=== PATIENT | female | born 2000 | race Caucasian/White ===

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

== ENCOUNTER 2022-02-25 15:11 | Outpatient (REF) | payer OTHER, MEDICAID, SELFPAY ==
[2022-02-25 16:30] LABS: Amphetamine Screen Urine Not Detected (Not Detect); Barbiturates, Urine Not Detected (Not Detect); Benzodiazepines Screen Urine Not Detected (Not Detect); Cannabinoid Screen Urine POSITIVE (Not Detect); Cocaine Screen Urine Not Detected (Not Detect); Fentanyl, urine Not Detected (Not Detect); Opiate Screen Urine Not Detected (Not Detect); Phencyclidine Screen Urine Not Detected (Not Detect)
== END 2022-02-25 15:12 | disposition home or self-care (01) ==
LOC: HO.LAB 15:11
PROVIDERS: PCP Specialist; Visit Provider Nurse Practitioner Psychiatric/Mental Health
DX: F10.10 Alcohol abuse, uncomplicated (principal); F12.90 Cannabis use, unspecified, uncomplicated
CPT/HCPCS: 80307

== ENCOUNTER 2022-03-19 10:15 | Outpatient (RCR) | payer OTHER, SELFPAY ==
[2022-02-20 12:38] VITALS: BMI 23.2
--- NOTE | 2022-02-20 14:54 | PC.NURSE ---
Case opened in treatment team
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
--- NOTE | 2022-02-21 09:39 | PC.NURSE ---
Patient reports she has a hair specialist appointment on 02/25/22. She reports dx of celiac disease and IBS.
--- NOTE | 2022-02-25 09:34 | PC.NURSE ---
Patient stated she has not been sleeping well and c/o anxiety. She picked up the new medication Seroquel but has not started the medication. Plans on starting the medication tonight. Patient is aware that the mediation could help with sleep and anxiety. Reports medical issues and anxiety issues causing problems with her appetite. Stated she is drinking ensure and is drinking fluids as her and her boyfriend went to the grocery store yesterday. She has an appointment with her waste duster today. She also called her [employer] this morning to make an appointment as she has Celiac's disease and IBS and has been having GI issues as a result. She is awaiting a call back to make an appointment. Asked patient if she was having SI. Patient reports passive SI thinking, I don't want to do this anymore . She denied plan or intent to kill herself. Reports she has much support from her mother, BF, brother, therapist, and friends she could reach out to if needed. Stated she could also call crisis for an evaluation if needed however does not feel she needs to at this time.
--- NOTE | 2022-02-26 14:24 | HO.PHPPROGNO ---
Subjective Subjective Date of Service: 02/26/22 Reason For Visit: PTSD,depression,anxiety Guardianship: No Medical Problems Affecting Mental Status: No Interim History: Describes mood as ?I am okay ?. Did not start Seroquel until last night, reports she had been having some difficulty with nausea and sleep over the past week. Reports carroting machine offbearer has started her with ondansetron, with positive effect. Denies SI, no safety concern. Reports anxiety has increased, she trying not to watch national news as it is making her more anxious. Medication Compliance: Intermittent Side effects from medications: No Attending Groups: Yes Review of Systems Acute medical concerns: Yes Working with carroting machine offbearer due to ongoing nausea. Medical Review of Systems: changed Review of Systems Review of Systems Yes all other systems are reviewed and are negative Gastrointestinal: Reports nausea Mental Status Exam Mental Status Exam Narrative: NAD. Appropriately dressed. Anxious mood an affect. Fully cooperative during encounter. Patient Appearance: Well Grooomed and Appropriate Patient Orientation: Person, Place, Time and Situation Level of Consciousness: Awake, Appropriate and Alert Patient Behavior: Appropriate, Cooperative and Good Eye Contact Mood Description: Anxious Affect Description: Depressed and Anxious Patient Cognition Impaired: No Ability to Follow Directions: Good Speech Pattern: Clear, Appropriate and Coherent Memory Description: Intact Hallucinations: None Delusions: Not Present Thought Process: Intact Thought Content: positive for Intact Depressive Symptoms: Increased Anxiety, Increased Irritability, Difficulty Sleeping, Changes in Appetite (decreased), Loss of Int. in Activity, Isolating-Friends/Family, Feelings of Guilt, Unhappiness and Unexplained Stomach Pain Judgement: Fair Diagnostics Vital Signs (24Hr): BMI result Body Mass Index 23.2 Assessment & Plan Assessment & Plan (1) Generalized anxiety disorder: Status: Acute Code(s): F41.1 - Generalized anxiety disorder Assessment and Plan: Reports overall feeling more anxious, states that she feels her anxiety is worsening. Feels depression is ?about the same ?. Denies SI, states that she feels safe at this time. Did not start the Seroquel as prescribed, started it last night. Reports that it appear to help her sleep well. Discussed medications, discussed possibility of starting BuSpar, discuss indications, risks, benefits, and alternatives. She is willing to trial this medication in addition to the Seroquel. (2) Chronic post-traumatic stress disorder (PTSD): Status: Acute Code(s): F43.12 - Post-traumatic stress disorder, chronic (3) Major depressive disorder, recurrent severe without psychotic features: Status: Acute Code(s): F33.2 - Major depressive disorder, recurrent severe without psychotic features (4) Alcohol consumption binge drinking: Status: Acute Code(s): F10.10 - Alcohol abuse, uncomplicated Assessment and Plan: Reports has maintain abstinence at this time. (5) Marijuana use, continuous: Status: Acute Code(s): F12.90 - Cannabis use, unspecified, uncomplicated Assessment and Plan: Reports has maintained abstinence. Plan 1. Add BuSpar 10 mg t.i.d. scheduled. 2. Continue with other medications as prescribed, including seroquel (started last night). 3. Continue with current [facility] plan of care. 4. Follow-up as per protocol. Patient educated on: diagnosis, medication risk/benefits, substance abuse and therapeutic strategies Informed Consent: understands Reason for contiued partial hosp. stay Substantial Risk for: harm to self, inability to function, rapid decompensation and med/psych decompensation Certification I certify that partial hospital treatment is medically necessary due to the symptoms and problems resulting from the patient's mental illness and the failure to treat the patient at the partial hospital level of care would likely result in the patient requiring inpatient psychiatric care which could not be prevented at a less intensive level of care. I spent minutes with the patient and/or on the patient floor today, greater than?50% of which was spent counseling/coordinating care. Discharge Plan Discharge Attending provider: Hardeep Zamarripa Medications: New quetiapine 25 mg tablet 25 mg PO BEDTIME 14 Days Qty: 14 0RF buspirone 10 mg tablet 10 mg PO TID 7 Days Qty: 21 0RF No Action Low-Ogestrel (28) 0.3-30 mg-mcg Tablet 1 tab PO DAILY 0RF cetirizine 10 mg Tablet 10 mg PO DAILY 0RF fluconazole 150 mg Tablet 150 mg PO QWEEK 0RF Rx Instructions: Take on ' spironolactone 100 mg Tablet 100 mg PO DAILY 0RF doxycycline monohydrate 100 mg Tablet 100 mg PO BID 0RF fluticasone propionate 50 mcg/actuation [place],Suspension 1 spray INTRANASAL DAILY 0RF Rx Instructions: administer into each nostril Telehealth Telehealth Location of provider rendering services: practice address Location of patient: address on file Patient Identification confirmed using: Name, : Yes Telehealth method: video Patient verbally consented to treatment: Yes Patient verbally consented to billing insurance company: Yes Patient informed of any privacy concerns related to visit: Yes Minutes spent on Phone/Video with Pt.: 15
--- NOTE | 2022-02-28 14:22 | PM.EVENT ---
Event Note Date of Service: 02/28/22 Event Note: Prescription sent to pharmacy for nicorette gum.
--- NOTE | 2022-03-06 14:43 | HO.PHPPROGNO ---
Subjective Subjective Date of Service: 03/06/22 Reason For Visit: PTSD,depression,anxiety Guardianship: No Medical Problems Affecting Mental Status: No Interim History: Reports increased anxiety regarding therapy appointment scheduled this afternoon with mother. States, I just have a lot going on today ?. Since starting quetiapine, overall anxiety has begun to lessen. Did not start BuSpar, believes it may have been thrown out accidentally in home. Request additional med for anxiety. Denies SI, no safety concern. Medication Compliance: Intermittent Side effects from medications: No Attending Groups: Yes Review of Systems Acute medical concerns: No Medical Review of Systems: unchanged Review of Systems Review of Systems Yes all other systems are reviewed and are negative Constitutional: Reports no additional constitutional complaints Mental Status Exam Mental Status Exam Narrative: NAD. Appropriately dressed. Fully cooperative during encounter. Patient Appearance: Well Grooomed and Appropriate Patient Orientation: Person, Place, Time and Situation Level of Consciousness: Awake, Appropriate and Alert Patient Behavior: Appropriate, Cooperative and Good Eye Contact Mood Description: Anxious Affect Description: Depressed and Anxious Patient Cognition Impaired: No Ability to Follow Directions: Good Speech Pattern: Clear, Appropriate and Coherent Memory Description: Intact Hallucinations: None Delusions: Not Present Thought Process: Intact Thought Content: positive for Intact Depressive Symptoms: Increased Anxiety, Increased Irritability, Loss of Int. in Activity, Feelings of Guilt and Unhappiness Judgement: Fair Diagnostics Vital Signs (24Hr): BMI result Body Mass Index 23.2 Assessment & Plan Assessment & Plan (1) Major depressive disorder, recurrent severe without psychotic features: Status: Acute Code(s): F33.2 - Major depressive disorder, recurrent severe without psychotic features Assessment and Plan: Reports that overall symptoms of depression have appear to lessen. Reports that at this time she is more concerned with her level of anxiety, which has appeared to continue. Denies severe mood instability at this time, no angry outbursts, no crying. Denies SI, feels safe. States Seroquel is helping at night, willing to have dose increase at this time. (2) Chronic post-traumatic stress disorder (PTSD): Status: Acute Code(s): F43.12 - Post-traumatic stress disorder, chronic Assessment and Plan: Continues with anxiety/PTSD symptoms. Reports did not start BuSpar, as it was thrown out accidentally when mistaken as trash in household. Requests another medication in addition, as BuSpar can take several weeks to be effective. Discussed medication options, risks and benefits, alternatives. (3) Marijuana use, continuous: Status: Acute Code(s): F12.90 - Cannabis use, unspecified, uncomplicated Assessment and Plan: Patient is currently attending COD groups while in [facility]. (4) Alcohol consumption binge drinking: Status: Acute Code(s): F10.10 - Alcohol abuse, uncomplicated Plan Patient reports increased anxiety, has not started meds yet. Reports somewhat decreased symptoms of depression, finding Seroquel useful. Medication changes as follows. 1. Increase Seroquel to 50 mg at bedtime. 2. New script written for BuSpar 10 mg t.i.d.. 3. Start Vistaril 25 mg b.i.d. p.r.n. for anxiety. 4. Continue with current [facility] plan of care. 5. Follow-up as per protocol. Patient educated on: diagnosis, medication risk/benefits and therapeutic strategies Informed Consent: understands Reason for contiued partial hosp. stay Substantial Risk for: harm to self, inability to function, rapid decompensation and med/psych decompensation Certification I certify that partial hospital treatment is medically necessary due to the symptoms and problems resulting from the patient's mental illness and the failure to treat the patient at the partial hospital level of care would likely result in the patient requiring inpatient psychiatric care which could not be prevented at a less intensive level of care. I spent minutes with the patient and/or on the patient floor today, greater than?50% of which was spent counseling/coordinating care. Discharge Plan Discharge Attending provider: Hardeep Zamarripa Medications: New nicotine (polacrilex) [Nicorette] 2 mg gum 2 mg buccal Q2H PRN (Reason: nicotine cravings) Qty: 40 0RF hydroxyzine HCl 25 mg tablet 25 mg PO BID PRN (Reason: anxiety) Qty: 14 0RF quetiapine [Seroquel] 50 mg tablet 50 mg PO BEDTIME 14 Days Qty: 14 0RF buspirone 10 mg tablet 10 mg PO TID 14 Days Qty: 42 0RF No Action Low-Ogestrel (28) 0.3-30 mg-mcg Tablet 1 tab PO DAILY 0RF cetirizine 10 mg Tablet 10 mg PO DAILY 0RF fluconazole 150 mg Tablet 150 mg PO QWEEK 0RF Rx Instructions: Take on ' spironolactone 100 mg Tablet 100 mg PO DAILY 0RF doxycycline monohydrate 100 mg Tablet 100 mg PO BID 0RF fluticasone propionate 50 mcg/actuation [place],Suspension 1 spray INTRANASAL DAILY 0RF Rx Instructions: administer into each nostril Telehealth Telehealth Location of provider rendering services: practice address Location of patient: address on file Patient Identification confirmed using: Name, : Yes Telehealth method: video Patient verbally consented to treatment: Yes Patient verbally consented to billing insurance company: Yes Patient informed of any privacy concerns related to visit: Yes Minutes spent on Phone/Video with Pt.: 20
--- NOTE | 2022-03-10 10:17 | HO.PHPPROGNO ---
Subjective Subjective Date of Service: 03/10/22 Reason For Visit: PTSD,depression,anxiety Guardianship: No Medical Problems Affecting Mental Status: No Interim History: Reports ?I am okay, just tired. Lots of stuff with my family ?. No SI reported, no safety concern. Some improvement with anxiety, continues with dysphoric mood. Only taking BuSpar b.i.d.rather than t.i.d.. Tolerating increased dose of quetiapine 50 mg well. Medication Compliance: Intermittent Side effects from medications: Yes (N&V after taking on empty stomach, since resolved) Attending Groups: Yes Review of Systems Acute medical concerns: No Medical Review of Systems: unchanged Review of Systems Review of Systems Yes all other systems are reviewed and are negative Constitutional: Reports no additional constitutional complaints Mental Status Exam Mental Status Exam Narrative: NAD. Patient Appearance: Well Grooomed and Appropriate Patient Orientation: Person, Place, Time and Situation Level of Consciousness: Awake, Appropriate and Alert Patient Behavior: Appropriate, Cooperative and Good Eye Contact Mood Description: Depressed ( I'm good, just tired. Lots of stuff with my family . ) and Anxious Affect Description: Depressed and Anxious Patient Cognition Impaired: No Ability to Follow Directions: Good Speech Pattern: Clear, Appropriate and Coherent Memory Description: Intact Hallucinations: None Delusions: Not Present Thought Process: Intact Thought Content: positive for Intact Depressive Symptoms: Increased Anxiety, Loss of Int. in Activity, Feelings of Guilt and Unhappiness Judgement: Fair Diagnostics Vital Signs (24Hr): BMI result Body Mass Index 23.2 Assessment & Plan Assessment & Plan (1) Major depressive disorder, recurrent severe without psychotic features: Status: Acute Code(s): F33.2 - Major depressive disorder, recurrent severe without psychotic features Assessment and Plan: Reports overall dysphoric mood, although slowly improving. No SI, no safety concerns. (2) Generalized anxiety disorder: Status: Acute Code(s): F41.1 - Generalized anxiety disorder Assessment and Plan: Reports taking BuSpar twice daily rather than 3 times, as she is finding it difficulty remembering to take mid day. Reports continued family problems, which continues to contribute to her level of anxiety and depression. Finding groups helpful, overall some slow improvement. Is concerned that she feels she may not be ready for discharge on Thursday, as she does not yet feel stable enough. (3) Chronic post-traumatic stress disorder (PTSD): Status: Acute Code(s): F43.12 - Post-traumatic stress disorder, chronic (4) Alcohol consumption binge drinking: Status: Acute Code(s): F10.10 - Alcohol abuse, uncomplicated Assessment and Plan: Reports continued abstinence from alcohol. (5) Marijuana use, continuous: Status: Acute Code(s): F12.90 - Cannabis use, unspecified, uncomplicated Assessment and Plan: Reports continued abstinence from cannabis. Plan 1. Continue with current [facility] plan of care. 2. Continue with current medications as prescribed. 3. Follow-up as per protocol. Patient educated on: diagnosis, medication risk/benefits and therapeutic strategies Informed Consent: understands Reason for contiued partial hosp. stay Substantial Risk for: inability to function and med/psych decompensation Certification I certify that partial hospital treatment is medically necessary due to the symptoms and problems resulting from the patient's mental illness and the failure to treat the patient at the partial hospital level of care would likely result in the patient requiring inpatient psychiatric care which could not be prevented at a less intensive level of care. I spent minutes with the patient and/or on the patient floor today, greater than?50% of which was spent counseling/coordinating care. Discharge Plan Discharge Attending provider: Hardeep Zamarripa Medications: New nicotine (polacrilex) [Nicorette] 2 mg gum 2 mg buccal Q2H PRN (Reason: nicotine cravings) Qty: 40 0RF hydroxyzine HCl 25 mg tablet 25 mg PO BID PRN (Reason: anxiety) Qty: 14 0RF quetiapine [Seroquel] 50 mg tablet 50 mg PO BEDTIME 14 Days Qty: 14 0RF buspirone 10 mg tablet 10 mg PO TID 14 Days Qty: 42 0RF No Action Low-Ogestrel (28) 0.3-30 mg-mcg Tablet 1 tab PO DAILY 0RF cetirizine 10 mg Tablet 10 mg PO DAILY 0RF fluconazole 150 mg Tablet 150 mg PO QWEEK 0RF Rx Instructions: Take on ' spironolactone 100 mg Tablet 100 mg PO DAILY 0RF doxycycline monohydrate 100 mg Tablet 100 mg PO BID 0RF fluticasone propionate 50 mcg/actuation [place],Suspension 1 spray INTRANASAL DAILY 0RF Rx Instructions: administer into each nostril Telehealth Telehealth Location of provider rendering services: practice address Location of patient: address on file Patient Identification confirmed using: Name, : Yes Telehealth method: video Patient verbally consented to treatment: Yes Patient verbally consented to billing insurance company: Yes Patient informed of any privacy concerns related to visit: Yes Minutes spent on Phone/Video with Pt.: 15
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
--- NOTE | 2022-03-19 13:38 | PC.NURSE ---
Patient scheduled to discharge from [facility] today. Feels, ok regarding discharge. Denied SI or thoughts to harm self. Patient has the crisis number if she needed it. Reviewed patient medications with patient. Patient reports taking medications as prescribed. Medication education provided.
--- NOTE | 2022-03-19 14:03 | P.PNPSP_ITS ---
Subjective Subjective Date of Service: 03/19/22 Reason For Visit: PTSD,depression,anxiety Guardianship: No Medical Problems Affecting Mental Status: No Interim History: Describes mood as I'm doing pretty good, okay, I guess . Decreased depressive symptoms, decreased anxiety, although both still present. No SI, HI, SIB, no safety concerns. Feels [facility] has been helpful. Plans to attend [facility] and a DBT group. Medication Compliance: Intermittent (Reports has not been taking medications consistently.) Side effects from medications: No Attending Groups: Yes Review of Systems Acute medical concerns: No Medical Review of Systems: unchanged Review of Systems Review of Systems Yes all other systems are reviewed and are negative Constitutional: Reports no additional constitutional complaints Mental Status Exam Mental Status Exam Narrative: NAD. Patient Appearance: Well Grooomed and Appropriate Patient Orientation: Person, Place, Time and Situation Level of Consciousness: Awake, Appropriate and Alert Patient Behavior: Appropriate, Cooperative and Good Eye Contact Mood Description: Depressed and Anxious Affect Description: Appropriate and Anxious Patient Cognition Impaired: No Ability to Follow Directions: Good Speech Pattern: Clear, Appropriate and Coherent Memory Description: Intact Hallucinations: None Delusions: Not Present Thought Process: Intact Thought Content: positive for Intact Depressive Symptoms: Increased Anxiety and Unhappiness Judgement: Good Diagnostics Vital Signs (24Hr): BMI result Body Mass Index 23.2 Assessment & Plan Assessment & Plan (1) Major depressive disorder, recurrent severe without psychotic features: Status: Acute Code(s): F33.2 - Major depressive disorder, recurrent severe without psychotic features Assessment and Plan: Says less depressed, less anxious. Took buspar for several days, then stopped. Says this is because I haven't been eating consistently, so I haven't been taking my medications either . States that she has found the Seroquel 50 mg at bedtime to be helpful. Plans to begin taking her medications daily. Would like a refill of Seroquel. No SI, no safety concern. Plans to reach out to her therapist, who is on vacation this week. Is also contacting her outpatient psychiatric provider for an appointment. Feels ready for discharge from [facility]. Plans to attend adult children of alcoholics [facility], as well as possibly start a DBT group. Continues abstinent from substances at this time. (2) Generalized anxiety disorder: Status: Acute Code(s): F41.1 - Generalized anxiety disorder (3) Chronic post-traumatic stress disorder (PTSD): Status: Acute Code(s): F43.12 - Post-traumatic stress disorder, chronic (4) Alcohol consumption binge drinking: Status: Acute Code(s): F10.10 - Alcohol abuse, uncomplicated (5) Marijuana use, continuous: Status: Acute Code(s): F12.90 - Cannabis use, unspecified, uncomplicated Plan 1. Patient appears stable for discharge from [facility] today. 2. Refill of Seroquel 50 mg at bedtime, 30 day script sent to pharmacy. 3. Will follow-up with outpatient providers going forward. Patient educated on: diagnosis, medication risk/benefits, substance abuse and therapeutic strategies Informed Consent: understands Reason for contiued partial hosp. stay Substantial Risk for: stable for discharge Certification I certify that partial hospital treatment is medically necessary due to the symptoms and problems resulting from the patient's mental illness and the failure to treat the patient at the partial hospital level of care would likely result in the patient requiring inpatient psychiatric care which could not be prevented at a less intensive level of care. I spent minutes with the patient and/or on the patient floor today, greater than?50% of which was spent counseling/coordinating care. Discharge Plan Discharge Attending provider: Hardeep Zamarripa Additional Instructions: Rosi Seals [facility] 03/28/22, Ann singh APRN client has called for an appointment Medications: New nicotine (polacrilex) [Nicorette] 2 mg gum 2 mg buccal Q2H PRN (Reason: nicotine cravings) Qty: 40 0RF hydroxyzine HCl 25 mg tablet 25 mg PO BID PRN (Reason: anxiety) Qty: 14 0RF buspirone 10 mg tablet 10 mg PO TID 14 Days Qty: 42 0RF quetiapine 50 mg tablet 50 mg PO BEDTIME 30 Days Qty: 30 0RF No Action Low-Ogestrel (28) 0.3-30 mg-mcg Tablet 1 tab PO DAILY 0RF cetirizine 10 mg Tablet 10 mg PO DAILY 0RF fluconazole 150 mg Tablet 150 mg PO QWEEK 0RF Rx Instructions: Take on spironolactone 100 mg Tablet 100 mg PO DAILY 0RF fluticasone propionate 50 mcg/actuation [place],Suspension 1 spray INTRANASAL DAILY 0RF Rx Instructions: administer into each nostril minocycline 100 mg Capsule 100 mg PO DAILY 0RF Label Comments: Patient stated her doctor changed her from Doxycycline to Minocycline 100 mg Daily. Stand Alone Forms: Patient Portal Discharge page Telehealth Telehealth Location of provider rendering services: practice address Location of patient: address on file Patient Identification confirmed using: Name, : Yes Telehealth method: video Patient verbally consented to treatment: Yes Patient verbally consented to billing insurance company: Yes Patient informed of any privacy concerns related to visit: Yes Minutes spent on Phone/Video with Pt.: 15
--- NOTE | 2022-03-19 15:36 | PC.NURSE ---
I called the clients therapist , Rosi Seals to inform of client completion of the program
== END 2022-03-19 23:59 | disposition home or self-care (01) ==
LOC: HO.PHPA 10:15
PROVIDERS: Visit Provider Psychiatry & Neurology Psychiatry
DX: F33.2 Major depressive disorder, recurrent severe without psychotic features (principal); F41.1 Generalized anxiety disorder; F43.12 Post-traumatic stress disorder, chronic; F10.10 Alcohol abuse, uncomplicated; F12.90 Cannabis use, unspecified, uncomplicated; Z79.899 Other long term (current) drug therapy
CPT/HCPCS: 90791; 90853